=== PATIENT | female | born 1985 ===

== ENCOUNTER 2019-10-12 10:48 | Emergency (ER) | payer OTHER, SELFPAY ==
[2019-10-12 12:10] LABS: #Basophils 0.1 thou/uL (0.0-0.2); #Eosinphils 0.5 thou/uL (0.0-0.7); #Lymphocytes 2.5 thou/uL (1.20-3.40); #Monocytes 0.7 thou/uL (0.11-0.59); #Neutrophils 5.2 thou/uL (1.40-6.50); %Basophils 0.7 % (0.0-1.0); %Eosinophils 5.5 % (0.0-10.0); %Lymphocytes 27.7 % (21.0-51.0); %Monocytes 7.4 % (0.0-10.0); %Neutrophils 58.8 % (42.0-75.0); Mean Corpuscular HGB CONC 29.1 g/dL (32.0-36.0); Mean Corpuscular Hemoglobin 19.5 pg (27.0-31.0); Mean Corpuscular Volume 66.8 fL (78.0-98.0); Platelet Count 680 thou/uL (130-400); RBC Distribution Width 15.1 % (11.5-14.5); Red Blood Cell (RBC) Count 3.57 mill/uL (4.20-5.40); White Blood Cell (WBC) Count 8.9 thou/uL (4.8-10.8)
[2019-10-12 12:13] LABS: ALT (SGPT) 19 U/L (8-55); AST (SGOT) 22 U/L (5-34); Albumin 3.8 g/dL (3.5-5.0); Alkaline Phosphatase 87 U/L (40-110); Anion Gap 11 mmol/L (10-20); BUN (Urea Nitrogen) 11 mg/dL (7.0-18.7); Bilirubin, Total 0.3 mg/dL (0.2-1.2); Calc. Creatinine Clearance 0 mL/min (70-130); Calcium 8.8 mg/dL (7.8-10.44); Carbon Dioxide 26 mmol/L (22-29); Chloride 103 mmol/L (98-107); Estimated GFR-MDRD Greater than 90; Globulin 4.7 g/dL (2.4-3.5); Glucose 135 mg/dL (70-105); Protein, Total 8.5 g/dL (6.0-8.3); Sodium 136 mmol/L (136-145)
[2019-10-12 12:40] LABS: Hypochromia MODERATE=16-30 cells (100X) (0-5/hpf); MDiff Complete? YES; Microcytosis MODERATE=15-30 cells (100X) (0-5/hpf); Platelet Morphology Comment Appears Increased; Polychromasia SLIGHT = 2-3 cells (100X) (0-2/hpf); Reflex for Review?? YES
== END 2019-10-12 16:32 | disposition home or self-care (01) ==
LOC: ERS 10:48
DX: D64.9 Anemia, unspecified (principal)
CPT/HCPCS: 36415; 36430; 80053; 85025; 85060; 86850; 86900; 86901; 99284; P9016

== ENCOUNTER 2021-04-23 12:54 | Outpatient (CLI) | payer BC ==
[2021-04-23] MEDS ORDERED: Sodium Chloride 0.9% 10 ML ONE (13:31)
[2021-04-23] MEDS ORDERED: Acetaminophen 500 MG TAB ONE (14:20)
[2021-04-23] MEDS ORDERED: diphenhydrAMINE 25 MG CAP ONE (14:20)
[2021-04-23] MEDS ORDERED: diphenhydrAMINE 25 MG CAP PO PRN (14:23)
[2021-04-23] MEDS ORDERED: Acetaminophen 500 MG TAB PO PRN (14:23)
[2021-04-23 16:51] VITALS: BP 107/63; TEMP 99
== END 2021-04-23 16:58 | disposition home or self-care (01) ==
LOC: ONC/OP 12:54
PROVIDERS: ATTEND Internal Medicine Hematology & Oncology
DX: D69.6 Thrombocytopenia, unspecified (principal); D64.9 Anemia, unspecified
CPT/HCPCS: 36430; 86850; 86900; 86901; P9016